=== PATIENT | female | born 2005 | race Caucasian/White ===

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

== ENCOUNTER 2023-03-10 17:19 | Emergency (ER) | payer OTHER, SELFPAY ==
--- NOTE | 2023-03-10 17:21 | ED.EAR ---
HPI - Ear Problem General Chief complaint: Ear Stated complaint: left ear Time Seen by Provider: 03/10/23 17:51 Source: patient and RN notes reviewed Mode of arrival: ambulatory Limitations: no limitations History of Present Illness HPI Narrative: 18-year-old female presents with concern for left ear pain and decreased hearing. She reports some runny nose. She denies drainage from the ear. She denies fever. MD Complaint: ear pain Related Data Home Medications Medication Instructions Recorded Confirmed escitalopram oxalate 20 mg tablet 20 mg PO DAILY 12/16/22 03/10/23 medroxyprogesterone 150 mg/mL 150 mg IM [id number] 12/16/22 03/10/23 intramuscular suspension Allergies Allergy/AdvReac Type Severity Reaction Status Date / Time No Known Allergies Allergy Verified 03/10/23 17:36 Review of Systems Review of Systems: CONSTITUTIONAL: Denies malaise, chills, sweats, or fever. EYES: Denies visual changes, redness, or discharge. ENT: Reports rhinorrhea. Congestion, sinus pain, and sore throat. Reports left ear pain and decreased hearing CARDIOVASCULAR: Denies chest pain, palpitations, or edema. RESPIRATORY: Denies cough. Denies dyspnea. GASTROINTESTINAL: Denies abdominal pain, nausea, vomiting, diarrhea SKIN: Denies rash or itching. MUSCULOSKELETAL: Denies myalgia. NEUROLOGIC: Denies headache. All systems reviewed & are unremarkable except as noted in HPI and below PMFSH Past Medical History Medical History (Updated 03/10/23 @ 17:54 by Adelina Bob NP) Anxiety Surgical History Surgical History (Updated 07/08/21 @ 22:14 by Bella Cary NP) No history of previous surgery Social History Social History (Updated 07/08/21 @ 22:14 by Bella Cary NP) Smoking status: Never smoker Alcohol intake: never Substance use: never Living arrangements: with family Gender identity (if verbalized by the patient): Female Comments At time of signature, agree with nursing past medical, surgical, social and family history. There is no relevant family history pertinent to the presenting complaint Exam Narrative: GENERAL: Well-appearing, well-nourished, and in no acute distress. HEAD: Normocephalic EYES: PERRLA, conjunctivae clear ENT: Nares clear. Mucous membranes moist. Right tM pearly gary with sharp light reflex, left TM erythematous and bulging; no tragal tenderness. Oropharynx not erythematous without lesions. Tonsils not enlarged and without exudate, no drooling, no hoarseness, no trismus, uvula midline. NECK: Supple. No lymphadenopathy CHEST: Clear to auscultation, breath sounds equal. No wheezing, rhonchi, rales, or stridor. No respiratory distress, speaks in full sentences. HEART: Regular rate and rhythm. No murmur heard. SKIN: Warm, dry, no rash. NEURO: Alert and oriented x3. PSYCH: Normal mood and affect Course Course Emergency Course: Patient is aware of diagnosis, understands and agrees to treatment plan. Anticipatory guidance given. Patient agrees to follow-up as directed and is aware of reasons to seek care at the emergency department. Portions of this record may have been created with voice recognition software Level of Care: Express Care Visit Vital Signs Vital signs: Reviewed. Medical Decision Making MDM Narrative Medical decision making narrative: Differential diagnosis considered: Velasquez virus, strep pharyngitis, allergic rhinitis, upper respiratory tract infection, sinusitis, rhinosinusitis, nasopharyngitis. viral pharyngitis, otitis media, otitis externa, otitis effusion, cerumen impaction, foreign body. Exam findings show no acute concerns or changes; patient is non-toxic appearing and is in no distress. Patient is appropriate for outpatient treatment and follow-up. Critical Care Time Critical Care Time Critical Care Time: No Discharge Plan Discharge Clinical Impression: Otitis media Patient Disposition: Home, Self-Care Condition: Stable
[2023-03-10 17:25] VITALS: BP 114/61; PULSE 78; RESP 16; TEMP 36.8; O2SAT 99
== END 2023-03-10 18:00 | disposition home or self-care (01) ==
PROVIDERS: Emergency Provider Nurse Practitioner; PCP Internal Medicine
DX: H66.92 Otitis media, unspecified, left ear (principal); F41.9 Anxiety disorder, unspecified
CPT/HCPCS: 99213; G0463

== ENCOUNTER 2023-09-22 13:38 | Emergency (ER) | payer OTHER, SELFPAY ==
--- NOTE | 2023-09-22 13:50 | ED.EAR ---
HPI - Ear Problem General Chief complaint: Ear Stated complaint: nausea/throat/ears Time Seen by Provider: 09/22/23 13:50 Source: patient Mode of arrival: ambulatory Limitations: no limitations History of Present Illness HPI Narrative: 18 y/o female presented for c/o sore throat, bilateral ear pressure, headache, body aches, sinus congestion, cough, and subjective fever x2 days. Started with nausea and vomiting today.. Denies sob, wheezing, chest pain or lethargy. MD Complaint: ear pain Related Data Home Medications Medication Instructions Recorded Confirmed escitalopram oxalate 20 mg tablet 20 mg PO DAILY 12/16/22 09/22/23 medroxyprogesterone 150 mg/mL 150 mg IM [id number] 12/16/22 09/22/23 intramuscular suspension Allergies Allergy/AdvReac Type Severity Reaction Status Date / Time No Known Allergies Allergy Verified 03/10/23 17:36 Review of Systems Review of Systems: CONSTITUTIONAL: Denies malaise EYES: Denies visual changes, redness, or discharge. ENT: Denies sinus pain. Reports ear pain, rhinorrhea, congestion, and sore throat CARDIOVASCULAR: Denies chest pain, palpitations, or edema. RESPIRATORY: Denies cough or dyspnea. GASTROINTESTINAL: Denies abdominal pain, diarrhea reports nausea, vomiting SKIN: Denies rash MUSCULOSKELETAL: reports myalgia. NEUROLOGIC: reports headache. All systems reviewed & are unremarkable except as noted in HPI and below PMFSH Past Medical History Medical History Anxiety Surgical History Surgical History No history of previous surgery Social History Social History Smoking status: Never smoker Alcohol intake: never Substance use: never Living arrangements: with family Gender identity (if verbalized by the patient): Female Comments At time of signature, agree with nursing past medical, surgical, social and family history. There is no relevant family history pertinent to the presenting complaint Exam Narrative: GENERAL: mildly ill-appearing EYES: PERRLA, conjunctivae clear ENT: Nares clear. Mucous membranes moist. TM slightly erythematous with dull light reflex bilaterally; no tragal tenderness. Oropharynx not erythematous without lesions. Tonsils not enlarged and without exudate, no drooling, no hoarseness, no trismus, uvula midline. NECK: Supple. No lymphadenopathy CHEST: Clear to auscultation, breath sounds equal. No wheezing, rhonchi, rales, or stridor. No respiratory distress, speaks in full sentences. HEART: Regular rate and rhythm. No murmur heard. SKIN: Warm, dry, no rash. NEURO: Alert and oriented x3. PSYCH: Normal mood and affect Course Course Emergency Course: Patient is aware of diagnosis, understands and agrees to treatment plan. Anticipatory guidance given. Patient agrees to follow-up as directed and is aware of reasons to seek care at the emergency department. Portions of this record may have been created with voice recognition software Level of Care: Express Care Visit Vital Signs Vital signs: Vital Signs Temperature 100.0 F H 09/22/23 13:57 Pulse Rate 95 09/22/23 13:57 Respiratory Rate 16 09/22/23 13:57 Blood Pressure 118/48 L 09/22/23 13:57 Pulse Oximetry 100 09/22/23 13:57 Oxygen Delivery Room Air 09/22/23 13:57 Temperature 100.0 F H 09/22/23 13:57 Pulse Rate 95 09/22/23 13:57 Respiratory Rate 16 09/22/23 13:57 Blood Pressure 118/48 L 09/22/23 13:57 Pulse Oximetry 100 09/22/23 13:57 Oxygen Delivery Room Air 09/22/23 13:57 Reviewed Medical Decision Making MDM Narrative Medical decision making narrative: POS covid Advised supportive measures and signs/symptoms to go to the ER. Patient is appropriate for outpatient treatment and follow-up. Differential Diagnosis Differential Diagnosis: Coronavirus, strep pharyn
[2023-09-22 13:57] VITALS: BP 118/48; PULSE 95; RESP 16; TEMP 37.8; O2SAT 100
[2023-09-22 14:04] LABS: EDSTREPNEGPOS1 Presumptive Negative
[2023-09-22 14:05] LABS: EDINFLUASCREEN Negative; EDINFLUBSCREEN Negative
== END 2023-09-22 14:11 | disposition home or self-care (01) ==
PROVIDERS: Emergency Provider Nurse Practitioner Family; PCP Internal Medicine
DX: U07.1 COVID-19 (principal); F41.9 Anxiety disorder, unspecified
CPT/HCPCS: 87081; 87426; 87804; 87880; 99213; G0463

== ENCOUNTER 2024-12-06 12:31 | Emergency (ER) | payer OTHER, SELFPAY ==
--- OUTSIDE RECORDS SUMMARY | 2012-04-01 06:20 | XMS_ITS | Continuity of Care Document ---
Author Organization [facility] Address [address] [place] [address] Phone Care Team Providers Care Tilt Wall Supervisor Name Role Phone Yan Pacheco MD Unavailable Unavailable Medications Medication Instructions Dosage Effective Dates (start - stop) Status Comments fexofenadine 60 mg tablet take 1 tablet (60MG) by oral route every morning 60 MG - Active cetirizine 10 mg tablet take 1 tablet (10MG) by oral route every evening 10 MG - Active Advance Directives Directive Yes / No Effective Date File Name No Information Encounters Encounter Description Practice Location Reason(s) For Visit Diagnoses Date Provider Providers Copied on Encounter [facility], [address], [place], [id number], tel:[phone] [facility] No Information Junior Heredia. [address] [place] [address], [id number], [place]. tel:[phone] [facility], [address], [place], [id number], [place] tel:[phone] [facility] Other specified urticaria Junior Heredia. [address] [place] [address], [id number], [place]. tel:[phone] Referring Provider: Yan Pacheco, [address] [place] [address], [id number] . tel:[phone] Family History Family Member Type Diagnosis Age At Onset No Information Payers Payer name Insurance type Covered green party ID Authordavida karla(s) [facility] [id number] Social History Type Description Quantity Date Captured Comments Sex Female Smoking Status No Information Chief Complaint And Reason For Visit No Information Reason For Referral Reason For Referral No Information History Of Present Illness Encounter Date Complaint History Of Prese nt Illness No Information Functional Status Date Functional Assessmen t No Information Instructions Date Instruction Additional Infor mation No Information Assessments Type Assessment Date No Information Patient Care Teams Name Effective Dates (start - stop) Status Members No Information
[2024-12-06 12:36] VITALS: BP 143/65; PULSE 99; RESP 16; TEMP 36.6; O2SAT 100
[2024-12-06 13:01] LABS: EDSTREPNEGPOS1 Negative (Negative)
--- NOTE | 2024-12-06 13:10 | ED_ITS ---
HPI - URI/Sore Throat General Chief Complaint: Upper Respiratory Infection Stated Complaint: throat red and swollen Time Seen by Provider: 12/06/24 12:57 Source: patient and RN notes reviewed Mode of arrival: ambulatory Limitations: no limitations History of Present Illness HPI Narrative: Patient presents today complaining of sore throat since yesterday, worse today. Denies any additional symptoms to include cough, congestion, fever. Denies any known sick contacts. Pain increases with swallowing. She has been taking ibuprofen without improvement and currently rates her pain 5/10. Related Data Home Medications ?Medication ?Instructions ?Recorded ?Confirmed ?Last Taken ?Type escitalopram oxalate 20 mg tablet 20 mg PO DAILY 12/1609/22/23 Unknown History Allergies Allergy/AdvReac Type Severity Reaction Status Date / Time No Known Allergies Allergy Verified 12/06/24 12:40 [facility] Past Medical History Medical History Anxiety Surgical History Surgical History No history of previous surgery Social History Social History Smoking status: Never smoker Alcohol intake: never Substance use: never Living arrangements: with family Gender identity (if verbalized by the patient): Female Comments At time of signature, I have reviewed and agree with nursing past medical, surgical, social and family history unless otherwise noted. Please see nursing chart for further information. There is no relevant family history pertinent to the presenting complaint Exam Narrative: GENERAL: Well-appearing, well-nourished, and in no acute distress. HEAD: Normocephalic, atraumatic. EYES: EOMI. No redness or drainage. Conjunctivae normal. ENT: Mucous membranes pink and moist. Nares clear. No rhinorrhea. TMs normal bilaterally. Throat mildly erythematous. Tonsils 2+ without exudate. Uvula midline. NECK: Normal AROM. Supple. No lymphadenopathy. CHEST: No respiratory distress. Clear to auscultation. HEART: Regular rate and rhythm. No murmur appreciated. EXTREMITIES: Normal range of motion. No edema. SKIN: Warm, dry, no rash. Capillary refill normal. Normal skin turgor. NEURO: No focal deficits. Alert and oriented x3. Gait steady. PSYCH: Normal affect. No signs of depression or anxiety. Course Course Level of Care: Express Care Visit Vital Signs Vital signs: Vital Signs Temperature 97.8 F 12/06/24 12:36 Pulse Rate 99 12/06/24 12:36 Respiratory Rate 16 12/06/24 12:36 Blood Pressure 143/65 H 12/06/24 12:36 Pulse Oximetry 100 12/06/24 12:36 Oxygen Delivery Room Air 12/06/24 12:36 Temperature 97.8 F 12/06/24 12:36 Pulse Rate 99 12/06/24 12:36 Respiratory Rate 16 12/06/24 12:36 Blood Pressure 143/65 H 12/06/24 12:36 Pulse Oximetry 100 12/06/24 12:36 Oxygen Delivery Room Air 12/06/24 12:36 Reviewed MDM - URI/Sore Throat MDM Narrative Medical decision making narrative: Patient is 19-year-old female patient presents today with sore throat since yesterday, worse today. Denies any additional symptoms. Ibuprofen without improvement. Upper on exam, throat is mildly erythematous without edema or exudate. Rapid strep negative. Culture pending. Will hold off prescribing antibiotics until culture results. Vital signs stable. Symptoms likely viral in etiology. Discussed [id number] medication use and duration of illness. No prescription medications indicated at this time. Anticipatory guidance given. Differential Diagnosis Differential diagnosis: Likely upper respiratory infection, pharyngitis and other (Strep throat) Lab Data Attestation: I reviewed the patient's lab results. Labs: Lab Results 12/06/24 Range/Units 12:59 POC Grp A Strep Screen Negative (Negative) Critical Care Time Critical Care Time Critical Care Time: No Discharge Plan Discharge Clinical Impression: Pharyngitis Qualifiers: Pharyngitis/tonsillitis etiology: unspecified etiology Qualified Code(s): J02.9 - Acute pharyngitis, unspecified Patient Disposition: Home Condition: Stable Instructions: Pharyngitis (ED) Additional Instructions: Your rapid strep swab was negative today at [facility]. You will be notified in a few days if the culture comes back positive for strep, and appropriate antibiotics will be called in for you at that time. Your symptoms are likely due to a viral illness, which is not treated with antibiotics. Viral symptoms can be present for up to 7-10 days. Take Tylenol or ibuprofen for fever or pain. Rest and stay hydrated. Follow up with your PCP in 7 days if symptoms are not improving. Go to the ER immediately if you have any difficulty breathing or swallowing. Your blood pressure was elevated above 120/80 today at Urgent Care. This puts you above the threshold for follow up. Please schedule a followup visit with your personal physician as soon as possible, for further evaluation and treatment. Even blood pressure exceeding 120/80 may indicate pre-hypertension. Patient Language: Arabic Prescriptions: No Action escitalopram oxalate 20 mg tablet 20 mg PO DAILY Follow-up/Referrals: Juan Miguel,Miladys Daniels MD [Primary Care Provider, Internal Medicine] Stand Alone Forms: Work/School Release IP Time of Disposition: 13:14
== END 2024-12-06 13:15 | disposition home or self-care (01) ==
PROVIDERS: Emergency Provider Nurse Practitioner; PCP Internal Medicine
DX: J02.9 Acute pharyngitis, unspecified (principal); F41.9 Anxiety disorder, unspecified
CPT/HCPCS: 87081; 87880; 99213; G0463